=== PATIENT | female | born 1940 | race Caucasian/White ===

== ENCOUNTER 2023-06-07 12:54 | Inpatient (IN) | payer MEDICARE, OTHER ==
--- NOTE | 2023-06-07 12:58 | ERPHSYRPT ---
- History of Present Illness Time Seen by Provider: 06/07/23 12:58 Source: patient, EMS, old records Exam Limitations: clinical condition Physician History: This is an 82-year-old overweight white female patient who has been falling frequently. Patient was brought into the emergency department by the paramedics. They have been out there at the patient's home a couple of the times earlier in the week but she refused to be transported to the emergency department. Today, she fell again prior to arrival and complains of a headache and neck pain and left shoulder and left upper arm pain as well as right hip pain and right lower back pain. Patient presents to the emergency department in sinus tachycardia. She denies chest pain. She denies shortness of breath. She has noticeable bruising left upper arm. Patient has a history of hypertension, diabetes and hyperlipidemia. Occurred: just prior to arrival Reason for Fall: unknown Injuries/Pain Location: head, neck, upper extremity (Left clavicle, left shoulder and left upper arm), pelvis (Right hip), lower (Lower back in the mid 9) Loss of Consciousness: no loss of consciousness Quality: aching Severity of Pain-Max: mild (To moderate) Severity of Pain-Current: mild (To moderate) Modifying Factors: Improves With: movement Associated Symptoms (Fall): headache, neck pain, other (Right hip and lower spine. Left shoulder and left upper arm) Allergies/Adverse Reactions: Sulfa (Sulfonamide Antibiotics) Allergy (Unknown, Verified 06/07/23 13:06) Home Medications: Amlodipine Besylate 5 mg [Norvasc 5 mg] 5 mg PO DAILY 06/07/23 [History] Glipizide 10 mg [Glucotrol 10 MG] 10 mg PO DAILY 06/07/23 [History] Simvastatin 20Mg [Zocor 20Mg] 20 mg PO DAILY 06/07/23 [History] lisinopriL [Zestril] 30 mg PO DAILY 06/07/23 [History] Travel Risk - International Travel Have you traveled outside of the country in past 3 weeks: No - Coronavirus Screening Are you exhibiting any of the following symptoms?: No Close contact with a COVID-19 positive Pt in past 14-21 Days: No - Review of Systems Constitutional: No Symptoms Eyes: No Symptoms Ears, Nose, & Throat: No Symptoms Respiratory: No Symptoms Cardiac: No Symptoms Abdominal/Gastrointestinal: No Symptoms Genitourinary Symptoms: No Symptoms Musculoskeletal: Back Pain (Lower midline), Neck Pain, Fall, Injury (Left cl avicle, left shoulder, left upper arm, right hip and lower back in the midline) Skin: No Symptoms Neurological: Headache (Mild) Psychological: No Symptoms Endocrine: No Symptoms Hematologic/Lymphatic: No Symptoms Immunological/Allergic: No Symptoms All Other Systems: Reviewed and Negative - Past Medical History Pertinent Past Medical History: Yes - Past Surgical History Past Surgical History: Yes - Nursing Vital Signs Nursing Vital Signs: Initial Vital Signs Temperature 97.9 F 06/07/23 12:55 Pulse Rate 129 H 06/07/23 12:55 Respiratory Rate 18 06/07/23 12:55 Blood Pressure 96/74 06/07/23 12:55 O2 Sat by Pulse Oximetry 95 06/07/23 12:55 Pain Scale Pain Intensity 6 - Victorino Coma Score Best Eye Response (Victorino): (4) open spontaneously Best Verbal Response (Victorino): (5) oriented Best Motor Response (Victorino): (6) obeys commands Victorino Total: 15 - Physical Exam General Appearance: no apparent distress, alert, anxiety, obese Head Injury: no evidence of injury Eye Exam: PERRL/EOMI, eyes nml inspection ENT Exam: airway nml, nml ext.inspection, No evidence of ENT injury, No dental injury Neck Exam: trachea midline, normal alignment, normal inspection, c-collar in place Respiratory/Chest Exam: normal breath sounds, No chest tenderness, No respiratory distress, No ecchymosis, No crepitus Cardiovascular Exam: tachycardia Gastrointestinal Exam: soft, normal bowel sounds, No tenderness Rectal Exam: not done Back Exam: normal inspection, vertebral tenderness (Lower midline lumbar region), decreased range of motion, muscle spasm Extremity Exam: limited range of motion (Left upper extremity), hip tenderness (Right), pain with movement (Left upper extremity), tenderness (Left upper extremity above the elbow, right hip, lower back), No deformities Neurologic Exam: alert, oriented x 3, cooperative, 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 tested, normal mood/affect Skin Exam: ecchymosis (Left upper extremity in between the left shoulder joint and the left elbow joint) SpO2 Interpretation: borderline oxygenation O2 Delivery: Room Air - Course Nursing assessment & vital signs reviewed: Yes EKG Interpreted by Me: RATE, Sinus Tach, NORMAL AXIS, prolonged QT interval, NORMAL QRS, Other (No acute ischemic changes on today's twelve-lead EKG) Ordered Tests: Active Orders 24 hr Category Date Time Status Oyster Bed Worker STAT Care 06/07/23 13:22 Active Catheter-Jeffrey Pop STAT Care 06/07/23 13:44 Active EKG-ER Only STAT Care 06/07/23 13:21 Active IV Insertion STAT Care 06/07/23 13:21 Active Pulse Oximetry (ED) STAT Care 06/07/23 13:21 Active CERVICAL SPINE WO CONTRAST [CT] Stat Exams 06/07/23 13:20 Completed CLAVICLE Stat Exams 06/07/23 13:20 Completed HEAD WITHOUT CONTRAST [CT] Stat Exams 06/07/23 13:20 Completed HIP UNI (2V) INCL PEL IF DONE Stat Exams 06/07/23 13:21 Completed HUMERUS Stat Exams 06/07/23 13:21 Completed LUMBAR SPINE W/O [CT] Routine Exams 06/07/23 13:41 Completed SHOULDER Stat Exams 06/07/23 13:20 Completed CBC W DIFF Stat Lab 06/07/23 13:21 Completed CMP Stat Lab 06/07/23 13:21 Completed CULTURE,URINE Stat Lab 06/07/23 15:35 Received MAGNESIUM Stat Lab 06/07/23 13:21 Completed NT PRO BNPII Stat Lab 06/07/23 13:21 Completed PROTIME WITH INR Stat Lab 06/07/23 13:21 Completed TROPONIN Q4H Lab 06/07/23 13:30 Completed TROPONIN Q4H Lab 06/07/23 17:30 Ordered TROPONIN Q4H Lab 06/07/23 21:30 Ordered UA W/RFX UR CULTURE Stat Lab 06/07/23 15:35 Completed Medication Summary Generic Name Dose Route Start Last Admin Trade Name Freq PRN Reason Stop Dose Admin Ceftriaxone Sodium/Dextrose 1 g in 50 mls @ 100 mls/hr 06/07/23 17:05 06/07/23 17:08 Rocephin 1 Gm-D5w 50 Ml Bag IV 06/07/23 17:34 100 mls/hr STAT STA 100 mls/hr Administration Discontinued Medications Generic Name Dose Route Start Last Admin Trade Name Freq PRN Reason Stop Dose Admin Sodium Chloride 500 mls @ 500 mls/hr 06/07/23 13:44 06/07/23 15:15 Sodium Chloride 0.9% 500 Ml IV 06/07/23 14:43 Infused .Q1H ONE Infusion Sodium Chloride Confirm 06/07/23 14:13 Sodium Chloride 0.9% 500 Ml Administered 06/07/23 14:14 Dose 500 mls @ ud IV .STK-MED ONE Morphine Sulfate 4 mg 06/07/23 16:11 06/07/23 16:14 Morphine Sulfate 4 Mg/Ml Injection IV 06/07/23 16:12 4 mg STAT ONE Administration Morphine Sulfate Confirm 06/07/23 16:13 Morphine Sulfate 4 Mg/Ml Injection Administered 06/07/23 16:14 Dose 4 mg .ROUTE .STK-MED ONE Ondansetron HCl 4 mg 06/07/23 16:11 06/07/23 16:13 Ondansetron Hcl 4 Mg/2 Ml Vial IV 06/07/23 16:12 4 mg STAT ONE Administration Ondansetron HCl Confirm 06/07/23 16:12 Ondansetron Hcl 4 Mg/2 Ml Vial Administered 06/07/23 16:13 Dose 4 mg .ROUTE .STK-MED ONE Lab/Rad Data: Laboratory Result Diagrams 06/07/23 13:21 06/07/23 13:21 Laboratory Results 06/07/23 06/07/23 06/07/23 Range/Units 15:35 13:30 13:21 WBC (4.0-10.5) x10^3/uL RBC (4.1-5.4) x10^6/uL Hgb (12.0-16.0) g/dL Hct (35-47) % MCV (78-100) fL MCH (26-32) pg MCHC (32-36) g/dL RDW (11.5-14.0) % Plt Count (150-450) x10^3/uL MPV (7.5-11.0) fL Gran % (36.0-66.0) % Immature Gran % (Auto) (0.00-0.4) % Nucleat RBC Rel Count (0.00-0.1) % Eos # (Auto) (0-0.5) x10^3/uL Immature Gran # (Auto) (0.00-0.03) x10^3u/L Absolute Lymphs (auto) (1.0-4.6) x10^3/uL Absolute Monos (auto) (0.0-1.3) x10^3/uL Absolute Nucleated RBC (0.00-0.01) x10^3u/L Lymphocytes % (24.0-44.0) % Monocytes % (0.0-12.0) % Eosinophils % (0.00-5.0) % Basophils % (0.0-0.4) % Absolute Granulocytes (1.4-6.9) x10^3/uL Basophils # (0-0.4) x10^3/uL PT 10.6 (9.4-12.5) SECONDS INR 0.97 (0.8-3.0) Sodium (137-145) mmol/L Potassium (3.5-5.1) mmol/L Chloride (98-107) mmol/L Carbon Dioxide (22-30) mmol/L Anion Gap (5-15) MEQ/L BUN (7-17) mg/dL Creatinine (0.52-1.04) mg/dL Estimated GFR ML/MIN Glucose (74-106) mg/dL Calcium (8.4-10.2) mg/dL Magnesium (1.6-2.3) mg/dL Total Bilirubin (0.2-1.3) mg/dL AST (14-36) U/L ALT (0-35) U/L Alkaline Phosphatase (38-126) U/L Troponin I 0.034 (0.000-0.034) ng/mL NT-Pro-B Natriuret Pep (<300) pg/mL Serum Total Protein (6.3-8.2) g/dL Albumin (3.5-5.0) g/dL Urine Color Dark Yellow A (Yellow) Urine Appearance Cloudy A (Clear) Urine pH 5.0 (4.6-8.0) Ur Specific [place] 1.020 (1.005-1.030) Urine Protein 30 (Negative) Urine Glucose (UA) Negative (Negative) mg/dL Urine Ketones Trace A (Negative) Urine Blood Small A (Negative) Urine Nitrite Negative (Negative) Urine Bilirubin Negative (Negative) Urine Urobilinogen 1.0 A (0.2) mg/dL Ur Leukocyte Esterase Negative (Negative) U Hyaline Cast (Auto) 6-10 A (0-2) /LPF Urine Microscopic RBC 0-2 (0-5) /HPF Urine Microscopic WBC 21-50 A (0-5) /HPF Ur Epithelial Cells Many A (None Seen) /HPF Urine Bacteria None Seen (None Seen) /HPF WBC Casts 2-5 (NEGATIVE) /LPF Urine Culture Reflexed YES (NO) 06/07/23 06/07/23 Range/Units 13:21 13:21 WBC 12.6 H (4.0-10.5) x10^3/uL RBC 4.54 (4.1-5.4) x10^6/uL Hgb 13.2 (12.0-16.0) g/dL Hct 42.2 (35-47) % MCV 93.0 (78-100) fL MCH 29.1 (26-32) pg MCHC 31.3 L (32-36) g/dL RDW 13.3 (11.5-14.0) % Plt Count 227 (150-450) x10^3/uL MPV 11.9 H (7.5-11.0) fL Gran % 86.6 H (36.0-66.0) % Immature Gran % (Auto) 0.6 H (0.00-0.4) % Nucleat RBC Rel Count 0.0 (0.00-0.1) % Eos # (Auto) 0 (0-0.5) x10^3/uL Immature Gran # (Auto) 0.07 H (0.00-0.03) x10^3u/L Absolute Lymphs (auto) 0.69 L (1.0-4.6) x10^3/uL Absolute Monos (auto) 0.89 (0.0-1.3) x10^3/uL Absolute Nucleated RBC 0.00 (0.00-0.01) x10^3u/L Lymphocytes % 5.5 L (24.0-44.0) % Monocytes % 7.1 (0.0-12.0) % Eosinophils % 0.0 (0.00-5.0) % Basophils % 0.2 (0.0-0.4) % Absolute Granulocytes 10.88 H (1.4-6.9) x10^3/uL Basophils # 0.03 (0-0.4) x10^3/uL PT (9.4-12.5) SECONDS INR (0.8-3.0) Sodium 141 (137-145) mmol/L Potassium 4.5 (3.5-5.1) mmol/L Chloride 105 (98-107) mmol/L Carbon Dioxide 16 L* (22-30) mmol/L Anion Gap 24.4 H (5-15) MEQ/L BUN 61 H (7-17) mg/dL Creatinine 2.79 H (0.52-1.04) mg/dL Estimated GFR 17.3 ML/MIN Glucose 202 H (74-106) mg/dL Calcium 8.9 (8.4-10.2) mg/dL Magnesium 2.0 (1.6-2.3) mg/dL Total Bilirubin 1.20 (0.2-1.3) mg/dL AST 45 H (14-36) U/L ALT 34 (0-35) U/L Alkaline Phosphatase 104 (38-126) U/L Troponin I (0.000-0.034) ng/mL NT-Pro-B Natriuret Pep 512 (<300) pg/mL Serum Total Protein 7.9 (6.3-8.2) g/dL Albumin 4.2 (3.5-5.0) g/dL Urine Color (Yellow) Urine Appearance (Clear) Urine pH (4.6-8.0) Ur Specific [place] (1.005-1.030) Urine Protein (Negative) Urine Glucose (UA) (Negative) mg/dL Urine Ketones (Negative) Urine Blood (Negative) Urine Nitrite (Negative) Urine Bilirubin (Negative) Urine Urobilinogen (0.2) mg/dL Ur Leukocyte Esterase (Negative) U Hyaline Cast (Auto) (0-2) /LPF Urine Microscopic RBC (0-5) /HPF Urine Microscopic WBC (0-5) /HPF Ur Epithelial Cells (None Seen) /HPF Urine Bacteria (None Seen) /HPF WBC Casts (NEGATIVE) /LPF Urine Culture Reflexed (NO) - Progress Progress: improved, pain not gone completely, re-examined Progress Note: 06/07/23 15:21 CT scan of the left shoulder shows modified angulated impacted humeral neck fracture. CT scan of the head shows a nonacute senile brain with bilateral basal ganglia remote lacunar infarcts. CT scan of the cervical spine fine shows degenerative changes without acute fracture or subluxation. Lumbar spine films shows no acute fracture or subluxation. There are degenerative changes noted. X-ray left humerus shows a moderate angulated impacted humeral neck fracture. X-ray of left clavicle shows moderate angulated impacted humeral head neck fracture. 06/07/23 17:10 This patient's medical issue is 1 of high complexity. The level of complexity and the work-up performed is based on review of the patient's past medical history, review of the patient's social condition, review of the patient's medication list, review the patient's drug allergy list, history of present illness and physical findings on examination. Work-up in this patient includes placement of intravenous line, infusion of intravenous fluids, placement of a Pop catheter, urinalysis, twelve-lead EKG, CBC, CMP, BNP, troponin level, CT scan of the head, CT scan of the cervical spine, CT scan of the left shoulder, x-ray of the left humerus, x-ray of the left clavicle, x-ray of the pelvis and right hip, x-ray of the lumbar spine. I reviewed the results of the above studies. I interpreted the plain x-ray films. Patient has a left humeral neck fracture. We placed the patient in a long-arm posterior splint and put her in a sling. Patient cannot be discharged to home. She has been falling frequently and is weak. Her urinalysis shows significant white cells in her urine and she has an associated elevated white count with a left shift. In addition she has acute on chronic renal failure and associated acidosis. She needs intravenous fluids, intravenous antibiotics and reassessment of her labs. We will also obtain orthopedic consultation for 06/10/2023. 06/07/23 17:14 I spoke with the telehospitalist Dr. Hernandez. I reviewed the above patient's history, history of present illness, physical findings, work-up results and he agrees with the above stated plan. Counseled pt/family regarding: lab results, diagnosis, rad results Medical Desision Making - Independent Historian Additional History obtained from: Child (Son) - Discussion of managment Care discussed with:: hospitalist (I spoke with , the telehospitalist) Reviewed:: Test results, Need for additional workup Agreed on:: Treatment plan, decision to admit Will see patient: in hospital - Diagnostic Testing Diagnostic test were ordered, analyzed, and reviewed by me: Yes Radiological Interpretation: Reviewed by me, Teleradiologist Report - Risk of complications The pt has a high risk of morbidity or mortality based on: Decision regarding hospitilization or escalation of hosp level of care - Departure Departure Disposition: In-patient Admission Clinical Impression: Left humeral fracture, Acute on chronic renal failure, Acidosis, unspecified, Leukocytosis, Weakness, Mild dehydration Condition: Fair Critical Care Time: No Referrals: BOGDAN REBOLLEDO [Primary Care Provider] - Follow up/PCP as directed
[2023-06-07 13:36] LABS: Absolute Neutrophil Ct (ANC) 10.88 x10^3/uL (1.4-6.9); BASOPHIL % 0.2 % (0.0-0.4); Basophil (Absolute #) 0.03 x10^3/uL (0-0.4); Eosinophil (Absolute #) 0 x10^3/uL (0-0.5); Hematocrit 42.2 % (35-47); Hemoglobin 13.2 g/dL (12.0-16.0); IMMATURE GRAN # 0.07 x10^3u/L (0.00-0.03); IMMATURE GRAN % 0.6 % (0.00-0.4); Lymphocyte (Absolute #) 0.69 x10^3/uL (1.0-4.6); Lymphocytes % 5.5 % (24.0-44.0); Mean Corpuscular Hemoglobin 29.1 pg (26-32); Mean Corpuscular Hgb Concent. 31.3 g/dL (32-36); Mean Platelet Volume 11.9 fL (7.5-11.0); Monocyte (Absolute #) 0.89 x10^3/uL (0.0-1.3); Monocytes % 7.1 % (0.0-12.0); Neutrophil % 86.6 % (36.0-66.0); Platelet Count 227 x10^3/uL (150-450); Red Blood Count 4.54 x10^6/uL (4.1-5.4); Red Cell Distribution Width 13.3 % (11.5-14.0); White Blood Count 12.6 x10^3/uL (4.0-10.5)
[2023-06-07] MEDS ORDERED: Sodium Chloride 0.9% 500 ML 500 ML IV ONE ×2 (13:44→14:13)
[2023-06-07 13:51] LABS: INR 0.97 (0.8-3.0); PROTIME 10.6 SECONDS (9.4-12.5)
[2023-06-07 14:00] LABS: ALBUMIN 4.2 g/dL (3.5-5.0); ANION GAP 24.4 MEQ/L (5-15); BILIRUBIN,TOTAL 1.2 mg/dL (0.2-1.3); Calcium 8.9 mg/dL (8.4-10.2); Creatinine 1 2.79 mg/dL (0.52-1.04); EST GLOMERULAR FILTRATION RATE 17.3 ML/MIN; Potassium 4.5 mmol/L (3.5-5.1); Total Protein 7.9 g/dL (6.3-8.2)
--- NOTE | 2023-06-07 14:25 | XRAY ---
Indication: Status post fall. Multiple contiguous axial images obtained through the head without contrast. Comparison: November 11, 2012 Age-appropriate global atrophy and minimal periventricular degenerative micro-ischemia bilateral. Basal ganglia demonstrates new tiny remote lacunar infarcts bilaterally. No acute intracranial gore-white matter differentiation preserved. Hemorrhage, abnormal extra-axial fluid collection, mass effect. Fourth ventricle is midline without hydrocephalus. Bony calvarium intact. Visualized paranasal sinuses and mastoid air cells are clear. 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
--- NOTE | 2023-06-07 14:29 | XRAY ---
Indication: Status post fall. Multiple contiguous axial images obtained through the cervical spine. Sagittal and coronal reformatted images obtained. [place] comparison: None Osseous structures demineralized consistent with patient's age. Axial images negative for acute fracture, suspicious bony lesions, or spinal canal stenosis. Mild/moderate C4-C7 degenerative endplate spurring, moderate atlantoaxial degenerative arthropathy, and moderate multilevel bilateral degenerative facet hypertrophy. Sagittal and coronal reformatted images demonstrates lordotic straightening, positional versus paraspinal spasm. 3 mm C4 and 4 mm C7 anterolisthesis. C4-T1 degenerative disc space narrowing. No acute compression fracture or jumped facet. Normal appearing craniocervical junction. Visualized noncontrasted soft tissues demonstrates mild bilateral carotid calcifications. Lung apices clear. Impression: 1. Cervical lordotic straightening, positional versus paraspinal spasm. 2. Negative acute fracture. 3. Chronic findings including osteopenia, multilevel degenerative spondylosis, grade 1 C4/C7 anterolisthesis, and carotid arteriosclerotic calcifications.
--- NOTE | 2023-06-07 14:33 | XRAY ---
Indication: Status post fall. Multiple contiguous axial images obtained through the lumbar spine. Sagittal and coronal reformatted images obtained. Comparison: None Osseous structures demineralized consistent with patient's age. Axial images demonstrate moderate/advanced T12-S1 degenerative disc disease with disc osteophyte complex and vacuum disc phenomena. Same levels also demonstrate mild/moderate bilateral degenerative facet hypertrophy. L4-L5 level demonstrates spinal canal stenosis due to combination of degenerative disc osteophyte complex and degenerative facet hypertrophy. Sagittal and coronal reformatted images demonstrates moderate levorotoscoliosis centered at L2-L3 and multilevel disc space narrowing. Also 5 mm L4 anterolisthesis on L5. No acute compression fracture. Visualized noncontrasted soft tissues demonstrates moderate scattered arteriosclerotic calcifications and incompletely visualized 4 cm chunky uterine calcified fibroid. Impression: 1. Negative acute fracture. 2. Chronic findings including osteopenia, multilevel degenerative spondylosis, L4 grade 1 anterolisthesis, levoscoliosis, arteriosclerotic disease, and uterine calcified fibroid.
--- NOTE | 2023-06-07 14:44 | XRAY ---
Indication: Pain following fall. Comparison: None 3 view left shoulder demonstrates moderately angulated impacted humeral neck fracture. Elsewhere osteopenia and mild AC degenerative arthropathy. No other bony, articular, or soft tissue abnormalities.
--- NOTE | 2023-06-07 14:44 | XRAY ---
Indication: Pain following fall. Comparison: None 2 view left clavicle demonstrates moderately angulated impacted humeral neck fracture. Elsewhere osteopenia, mild AC degenerative arthropathy, and moderate multilevel cervicothoracic degenerative spondylosis. No other bony, articular, or soft tissue abnormalities.
--- NOTE | 2023-06-07 14:44 | XRAY ---
Indication: Pain following fall. Comparison: None 2 view left humerus demonstrates moderately angulated impacted humeral neck fracture. Elsewhere osteopenia and mild AC degenerative arthropathy. No other bony, articular, or soft tissue abnormalities.
--- NOTE | 2023-06-07 14:46 | XRAY ---
Indication: Pain following fall. Comparison: None AP pelvis and 2 view left hip demonstrates osteopenia, degenerative changes lower lumbar spine reported separately, and large uterine calcified fibroid. No other bony, articular, or soft tissue abnormalities.
[2023-06-07 16:09] LABS: Appearance Cloudy (Clear); Bacteria None Seen /HPF (None Seen); Bilirubin Negative (Negative); Blood Small (Negative); Epithelial Cells Many /HPF (None Seen); Glucose, Urine Negative (Negative); Ketones Trace (Negative); Leukocyte Esterase Negative (Negative); Nitrite Negative (Negative); Protein,Urine Dip 30 (Negative); RBC 0-2 /HPF (0-5); WBC 21-50 /HPF (0-5)
[2023-06-07] MEDS ORDERED: MORPHINE SULFATE 4 MG INJ IV ONE (16:11)
[2023-06-07] MEDS ORDERED: Zofran 4 MG/2 ML VIAL IV ONE (16:11)
[2023-06-07] MEDS ORDERED: Zofran 4 MG/2 ML VIAL ONE (16:12)
[2023-06-07] MEDS ORDERED: MORPHINE SULFATE 4 MG INJ ONE (16:13)
[2023-06-07 16:37] LABS: ADD URINE CULTURE? YES (NO)
[2023-06-07] MEDS ORDERED: ROCEPHIN 1 Gm-D5w 50 ml Bag** 1 G/50 ML IVPB IV STA (17:05)
[2023-06-07] MEDS ORDERED: ROCEPHIN 1 Gm-D5w 50 ml Bag** 1 G/50 ML IVPB IV ONE (17:08)
[2023-06-07 17:47] LABS: VBG CARBOXYHEMOGLOBIN 3.9 % T HGB (0.0-6.9); VBG HCO3- 17.5 meq/L (22-28); VBG HEMOGLOBIN 13.7; VBG O2 SATURATION 72.5 (95-100); VBG pH 7.26 (7.32-7.42)
[2023-06-07 17:48] LABS: VBG POTASSIUM 6.1 (3.5-5.1)
[2023-06-07] MEDS: Sodium Chloride 0.9% 1000 ML 1,000 ML IV SCH ×2 (17:52→23:49)
[2023-06-07 18:19] LABS: ANION GAP 17.3 MEQ/L (5-15); Calcium 8.4 mg/dL (8.4-10.2); Creatinine 1 2.43 mg/dL (0.52-1.04); EST GLOMERULAR FILTRATION RATE 20.3 ML/MIN; Potassium 4.3 mmol/L (3.5-5.1); TROPONIN 0.029 ng/mL (0.000-0.034)
[2023-06-07] MEDS ORDERED: Zofran 4 MG/2 ML VIAL IV PRN (18:41)
[2023-06-07] MEDS ORDERED: TYLENOL 325 MG PO PRN (18:41)
[2023-06-07] MEDS ORDERED: MORPHINE SULFATE 4 MG INJ IV PRN (18:41)
[2023-06-07] MEDS ORDERED: MILK OF MAGNESIA 30 ML PO PRN (21:12)
[2023-06-07] MEDS ORDERED: Pepcid 20 MG PO PRN (21:12)
--- NOTE | 2023-06-07 21:23 | PCM.HP ---
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 She fell again last night and suffered a left humerus fracture. Labs were also significant for WBC of 12.6, platelets 227, VBG 7.26/39. BMP significant for CO2 of 18, anion gap of 17, creatinine of 2.4, glucose 154. UA with trace ketones, small blood, 21-50 WBCs and many epithelial cells. She had multiple imaging study including CT C-spine which was negative for acute fracture; x-ray of left clavicle that showed impacted humeral neck fracture; head CT that was negative for acute pathology; left shoulder x-ray that again showed humeral neck fracture; hip x-ray that was negative for acute abnormalities; lumbar CT that showed no acute fractures. In the ED she was given morphine 4 mg, Zofran 4 mg, Rocephin 1 g, NS 500 cc. Medications & Allergies Home Medications: Home Medication List Amlodipine Besylate 5 mg [Norvasc 5 mg] 5 mg PO DAILY 06/07/23 [History Confirmed 06/07/23] Aspirin EC 81 mg [Ecotrin 81 mg] 81 mg PO DAILY 06/07/23 [History Confirmed 06/07/23] Glipizide 10 mg [Glucotrol 10 MG] 10 mg PO DAILY 06/07/23 [History Confirmed 06/07/23] Simvastatin 20Mg [Zocor 20Mg] 20 mg PO DAILY 06/07/23 [History Confirmed 06/07/23] lisinopriL [Zestril] 30 mg PO DAILY 06/07/23 [History Confirmed 06/07/23] Allergies/Adverse Reactions: Allergies Allergy/AdvReac Type Severity Reaction Status Date / Time Sulfa (Sulfonamide Allergy Unknown Verified 06/07/23 13:06 Antibiotics) - Past Medical History Past Medical History: Yes Neurological History: Stroke ENT History: Cataracts Cardiac History: Arrhythmia, High Cholesterol, Hypertension Respiratory History: No Pertinent History Endocrine Medical History: Diabetes Type I Musculoskelatal History: Fractures GI Medical History: GERD History: No Pertinent History Pyscho-Social History: No Pertinent History Reproductive Disorders: No Pertinent History - Past Surgical History Past Surgical History: Yes Neuro Surgical History: No Pertinent History Cardiac History: No Pertinent History Respiratory Surgery: No Pertinent History GI Surgical History: Cholecystectomy Genitourinary Surgical Hx: No Pertinent History Musculskeletal Surgical Hx: No Pertinent History Female Surgical History: No Pertinent History - Social History Smoking Status: Never smoker Exposure to second hand smoke: No Alcohol: None Drug Use: none - Physical Exam Vital Signs: Vital Signs - 24 hr Temp Pulse Resp BP BP Pulse Ox 06/07/23 19:01 97.8 F 80 17 136/64 96 06/07/23 18:00 106/57 06/07/23 17:30 100 H 31 H 118/54 06/07/23 17:00 104 H 22 108/57 06/07/23 16:30 103 H 33 H 108/55 06/07/23 16:00 80 18 122/63 06/07/23 15:00 84 29 H 118/71 06/07/23 14:34 104 H 22 147/73 06/07/23 13:33 94 L 06/07/23 13:32 99 H 21 93/51 93 L 06/07/23 13:30 118 H 22 92 L 06/07/23 12:58 118 H 22 96/74 92 L 06/07/23 12:55 97.9 F 129 H 18 96/74 95 Results - Labs Lab/Micro Results: Lab Results-Last 24 Hours 06/07/23 06/07/23 06/07/23 Range/Units 13:21 13:21 13:21 WBC 12.6 H (4.0-10.5) x10^3/uL RBC 4.54 (4.1-5.4) x10^6/uL Hgb 13.2 (12.0-16.0) g/dL Hct 42.2 (35-47) % MCV 93.0 (78-100) fL MCH 29.1 (26-32) pg MCHC 31.3 L (32-36) g/dL RDW 13.3 (11.5-14.0) % Plt Count 227 (150-450) x10^3/uL MPV 11.9 H (7.5-11.0) fL Gran % 86.6 H (36.0-66.0) % Immature Gran % (Auto) 0.6 H (0.00-0.4) % Nucleat RBC Rel Count 0.0 (0.00-0.1) % Eos # (Auto) 0 (0-0.5) x10^3/uL Immature Gran # (Auto) 0.07 H (0.00-0.03) x10^3u/L Absolute Lymphs (auto) 0.69 L (1.0-4.6) x10^3/uL Absolute Monos (auto) 0.89 (0.0-1.3) x10^3/uL Absolute Nucleated RBC 0.00 (0.00-0.01) x10^3u/L Lymphocytes % 5.5 L (24.0-44.0) % Monocytes % 7.1 (0.0-12.0) % Eosinophils % 0.0 (0.00-5.0) % Basophils % 0.2 (0.0-0.4) % Absolute Granulocytes 10.88 H (1.4-6.9) x10^3/uL Basophils # 0.03 (0-0.4) x10^3/uL PT 10.6 (9.4-12.5) SECONDS INR 0.97 (0.8-3.0) pO2/FiO2 Ratio % VBG pH (7.32-7.42) VBG pCO2 at Pat Temp (42-55) mm/Hg VBG pO2 at Pat Temp (25-40) mm/Hg VBG HCO3 (22-28) meq/L VBG O2 Sat (Eunice) (95-100) VBG Base Excess (-2.0-2.0) VBG Hemoglobin VBG Carboxyhemoglobin (0.0-6.9) % T HGB POC Potassium (3.5-5.1) Sodium 141 (137-145) mmol/L Potassium 4.5 (3.5-5.1) mmol/L Chloride 105 (98-107) mmol/L Carbon Dioxide 16 L* (22-30) mmol/L Anion Gap 24.4 H (5-15) MEQ/L BUN 61 H (7-17) mg/dL Creatinine 2.79 H (0.52-1.04) mg/dL Estimated GFR 17.3 ML/MIN Glucose 202 H (74-106) mg/dL POC Glucometer (74 to 106) mg/dL Lactic Acid (0.4-2.0) Calcium 8.9 (8.4-10.2) mg/dL Magnesium 2.0 (1.6-2.3) mg/dL Total Bilirubin 1.20 (0.2-1.3) mg/dL AST 45 H (14-36) U/L ALT 34 (0-35) U/L Alkaline Phosphatase 104 (38-126) U/L Troponin I (0.000-0.034) ng/mL NT-Pro-B Natriuret Pep 512 (<300) pg/mL Serum Total Protein 7.9 (6.3-8.2) g/dL Albumin 4.2 (3.5-5.0) g/dL Urine Color (Yellow) Urine Appearance (Clear) Urine pH (4.6-8.0) Ur Specific [place] (1.005-1.030) Urine Protein (Negative) Urine Glucose (UA) (Negative) mg/dL Urine Ketones (Negative) Urine Blood (Negative) Urine Nitrite (Negative) Urine Bilirubin (Negative) Urine Urobilinogen (0.2) mg/dL Ur Leukocyte Esterase (Negative) U Hyaline Cast (Auto) (0-2) /LPF Urine Microscopic RBC (0-5) /HPF Urine Microscopic WBC (0-5) /HPF Ur Epithelial Cells (None Seen) /HPF Urine Bacteria (None Seen) /HPF WBC Casts (NEGATIVE) /LPF Urine Culture Reflexed (NO) 06/07/23 06/07/23 06/07/23 Range/Units 13:30 15:35 17:26 WBC (4.0-10.5) x10^3/uL RBC (4.1-5.4) x10^6/uL Hgb (12.0-16.0) g/dL Hct (35-47) % MCV (78-100) fL MCH (26-32) pg MCHC (32-36) g/dL RDW (11.5-14.0) % Plt Count (150-450) x10^3/uL MPV (7.5-11.0) fL Gran % (36.0-66.0) % Immature Gran % (Auto) (0.00-0.4) % Nucleat RBC Rel Count (0.00-0.1) % Eos # (Auto) (0-0.5) x10^3/uL Immature Gran # (Auto) (0.00-0.03) x10^3u/L Absolute Lymphs (auto) (1.0-4.6) x10^3/uL Absolute Monos (auto) (0.0-1.3) x10^3/uL Absolute Nucleated RBC (0.00-0.01) x10^3u/L Lymphocytes % (24.0-44.0) % Monocytes % (0.0-12.0) % Eosinophils % (0.00-5.0) % Basophils % (0.0-0.4) % Absolute Granulocytes (1.4-6.9) x10^3/uL Basophils # (0-0.4) x10^3/uL PT (9.4-12.5) SECONDS INR (0.8-3.0) pO2/FiO2 Ratio % VBG pH (7.32-7.42) VBG pCO2 at Pat Temp (42-55) mm/Hg VBG pO2 at Pat Temp (25-40) mm/Hg VBG HCO3 (22-28) meq/L VBG O2 Sat (Eunice) (95-100) VBG Base Excess (-2.0-2.0) VBG Hemoglobin VBG Carboxyhemoglobin (0.0-6.9) % T HGB POC Potassium (3.5-5.1) Sodium (137-145) mmol/L Potassium (3.5-5.1) mmol/L Chloride (98-107) mmol/L Carbon Dioxide (22-30) mmol/L Anion Gap (5-15) MEQ/L BUN (7-17) mg/dL Creatinine (0.52-1.04) mg/dL Estimated GFR ML/MIN Glucose (74-106) mg/dL POC Glucometer (74 to 106) mg/dL Lactic Acid 4.2 H (0.4-2.0) Calcium (8.4-10.2) mg/dL Magnesium (1.6-2.3) mg/dL Total Bilirubin (0.2-1.3) mg/dL AST (14-36) U/L ALT (0-35) U/L Alkaline Phosphatase (38-126) U/L Troponin I 0.034 (0.000-0.034) ng/mL NT-Pro-B Natriuret Pep (<300) pg/mL Serum Total Protein (6.3-8.2) g/dL Albumin (3.5-5.0) g/dL Urine Color Dark Yellow A (Yellow) Urine Appearance Cloudy A (Clear) Urine pH 5.0 (4.6-8.0) Ur Specific [place] 1.020 (1.005-1.030) Urine Protein 30 (Negative) Urine Glucose (UA) Negative (Negative) mg/dL Urine Ketones Trace A (Negative) Urine Blood Small A (Negative) Urine Nitrite Negative (Negative) Urine Bilirubin Negative (Negative) Urine Urobilinogen 1.0 A (0.2) mg/dL Ur Leukocyte Esterase Negative (Negative) U Hyaline Cast (Auto) 6-10 A (0-2) /LPF Urine Microscopic RBC 0-2 (0-5) /HPF Urine Microscopic WBC 21-50 A (0-5) /HPF Ur Epithelial Cells Many A (None Seen) /HPF Urine Bacteria None Seen (None Seen) /HPF WBC Casts 2-5 (NEGATIVE) /LPF Urine Culture Reflexed YES (NO) 06/07/23 06/07/23 06/07/23 Range/Units 17:40 17:47 20:39 WBC (4.0-10.5) x10^3/uL RBC (4.1-5.4) x10^6/uL Hgb (12.0-16.0) g/dL Hct (35-47) % MCV (78-100) fL MCH (26-32) pg MCHC (32-36) g/dL RDW (11.5-14.0) % Plt Count (150-450) x10^3/uL MPV (7.5-11.0) fL Gran % (36.0-66.0) % Immature Gran % (Auto) (0.00-0.4) % Nucleat RBC Rel Count (0.00-0.1) % Eos # (Auto) (0-0.5) x10^3/uL Immature Gran # (Auto) (0.00-0.03) x10^3u/L Absolute Lymphs (auto) (1.0-4.6) x10^3/uL Absolute Monos (auto) (0.0-1.3) x10^3/uL Absolute Nucleated RBC (0.00-0.01) x10^3u/L Lymphocytes % (24.0-44.0) % Monocytes % (0.0-12.0) % Eosinophils % (0.00-5.0) % Basophils % (0.0-0.4) % Absolute Granulocytes (1.4-6.9) x10^3/uL Basophils # (0-0.4) x10^3/uL PT (9.4-12.5) SECONDS INR (0.8-3.0) pO2/FiO2 Ratio 21.0 % VBG pH 7.26 L (7.32-7.42) VBG pCO2 at Pat Temp 39 L (42-55) mm/Hg VBG pO2 at Pat Temp 44 H (25-40) mm/Hg VBG HCO3 17.5 L (22-28) meq/L VBG O2 Sat (Eunice) 72.5 L (95-100) VBG Base Excess -9.0 L (-2.0-2.0) VBG Hemoglobin 13.7 VBG Carboxyhemoglobin 3.9 (0.0-6.9) % T HGB POC Potassium 6.1 H* (3.5-5.1) Sodium 140 (137-145) mmol/L Potassium 4.3 (3.5-5.1) mmol/L Chloride 109 H (98-107) mmol/L Carbon Dioxide 18 L (22-30) mmol/L Anion Gap 17.3 H (5-15) MEQ/L BUN 68 H (7-17) mg/dL Creatinine 2.43 H (0.52-1.04) mg/dL Estimated GFR 20.3 ML/MIN Glucose 154 H (74-106) mg/dL POC Glucometer 132 H (74 to 106) mg/dL Lactic Acid (0.4-2.0) Calcium 8.4 (8.4-10.2) mg/dL Magnesium (1.6-2.3) mg/dL Total Bilirubin (0.2-1.3) mg/dL AST (14-36) U/L ALT (0-35) U/L Alkaline Phosphatase (38-126) U/L Troponin I 0.029 (0.000-0.034) ng/mL NT-Pro-B Natriuret Pep (<300) pg/mL Serum Total Protein (6.3-8.2) g/dL Albumin (3.5-5.0) g/dL Urine Color (Yellow) Urine Appearance (Clear) Urine pH (4.6-8.0) Ur Specific [place] (1.005-1.030) Urine Protein (Negative) Urine Glucose (UA) (Negative) mg/dL Urine Ketones (Negative) Urine Blood (Negative) Urine Nitrite (Negative) Urine Bilirubin (Negative) Urine Urobilinogen (0.2) mg/dL Ur Leukocyte Esterase (Negative) U Hyaline Cast (Auto) (0-2) /LPF Urine Microscopic RBC (0-5) /HPF Urine Microscopic WBC (0-5) /HPF Ur Epithelial Cells (None Seen) /HPF Urine Bacteria (None Seen) /HPF WBC Casts (NEGATIVE) /LPF Urine Culture Reflexed (NO) - Radiology Impressions Radiology Exams & Impressions: Radiology Procedures Category Date Time Status CERVICAL SPINE WO CONTRAST [CT] Stat Exams 06/07/23 13:20 Completed CLAVICLE Stat Exams 06/07/23 13:20 Completed HEAD WITHOUT CONTRAST [CT] Stat Exams 06/07/23 13:20 Completed HIP UNI (2V) INCL PEL IF DONE Stat Exams 06/07/23 13:21 Completed HUMERUS Stat Exams 06/07/23 13:21 Completed LUMBAR SPINE W/O [CT] Routine Exams 06/07/23 13:41 Completed SHOULDER Stat Exams 06/07/23 13:20 Completed Assessment/Plan (1) Acidosis, unspecified Current Visit: Yes Status: Acute Code(s): E87.20 - ACIDOSIS, UNSPECIFIED (2) Acute on chronic renal failure Current Visit: Yes Status: Acute Code(s): N17.9 - ACUTE KIDNEY FAILURE, UNSPECIFIED; N18.9 - CHRONIC KIDNEY DISEASE, UNSPECIFIED (3) Left humeral fracture Current Visit: Yes Status: Acute Code(s): S42.302A - UNSP FRACTURE OF SHAFT OF HUMERUS, LEFT ARM, INIT (4) Mild dehydration Current Visit: Yes Status: Acute Code(s): E86.0 - DEHYDRATION (5) Weakness Current Visit: Yes Status: Acute Assessment & Plan: PHYSICAL EXAM Gen: Alert and oriented, NAD. Son at bedside Eyes: PERRL ENT: MMM CV: S1S2 Pulm: On RA, no accessory muscle use Abd: Soft/nt/nd Extrem: LUE in splint. LLE 1-2+ edema Skin: Large bruise LUE Neuro: No focal deficits noted Psych: Calm and cooperative ASSESSMENT #Left Humeral neck fracture #Failure to thrive #Multiple falls #LLE edema #Presumed acute renal failure (unknown baseline) #Anion gap metabolic acidosis likely multifactorial from renal failure and starvation ketosis #History of hypertension #History of CVA PLAN -Status post splint placement; Ortho consulted -IV fluids -P.o. diet -Doppler LLE -Follow renal panel and urine output -Hold TABITHA inhibitor until renal function improves -Physical therapy likely will need placement PO diet Prophylaxis: Lovenox Entire encounter performed via telemedicine Code(s): R53.1 - WEAKNESS Telemedicine Encounter - Telemedicine Encounter Telemedicine Encounter: The entirety of this encounter was performed via Telemedicine"
[2023-06-07 21:59] LABS: ALBUMIN 3.5 g/dL (3.5-5.0); ANION GAP 16.7 MEQ/L (5-15); Calcium 8.1 mg/dL (8.4-10.2); Creatinine 1 2.26 mg/dL (0.52-1.04); EST GLOMERULAR FILTRATION RATE 22.1 ML/MIN; PHOSPHOROUS 6.6 mg/dL (2.5-4.5); Potassium 4.3 mmol/L (3.5-5.1)
[2023-06-07] MEDS ORDERED: Sodium Chloride 0.9% 1000 ML 1,000 ML ONE (22:49)
[2023-06-08] MEDS: Sodium Chloride 0.9% 1000 ML 1,000 ML IV SCH ×2 (01:01→15:55)
[2023-06-08 06:20] LABS: Absolute Neutrophil Ct (ANC) 7.52 x10^3/uL (1.4-6.9); BASOPHIL % 0.3 % (0.0-0.4); Basophil (Absolute #) 0.03 x10^3/uL (0-0.4); Eosinophil % 0.1 % (0.00-5.0); Eosinophil (Absolute #) 0.01 x10^3/uL (0-0.5); Hematocrit 36.4 % (35-47); Hemoglobin 11.6 g/dL (12.0-16.0); IMMATURE GRAN # 0.04 x10^3u/L (0.00-0.03); IMMATURE GRAN % 0.4 % (0.00-0.4); Lymphocyte (Absolute #) 1.82 x10^3/uL (1.0-4.6); Lymphocytes % 17.1 % (24.0-44.0); Mean Cell Volume 93.1 fL (78-100); Mean Corpuscular Hemoglobin 29.7 pg (26-32); Mean Corpuscular Hgb Concent. 31.9 g/dL (32-36); Mean Platelet Volume 11.6 fL (7.5-11.0); Monocyte (Absolute #) 1.24 x10^3/uL (0.0-1.3); Monocytes % 11.6 % (0.0-12.0); Neutrophil % 70.5 % (36.0-66.0); Platelet Count 191 x10^3/uL (150-450); Red Blood Count 3.91 x10^6/uL (4.1-5.4); Red Cell Distribution Width 13.5 % (11.5-14.0); White Blood Count 10.7 x10^3/uL (4.0-10.5)
[2023-06-08] MEDS ORDERED: D50W 50 ml Abboject IV ONE ×2 (06:50→07:04)
[2023-06-08 06:52] LABS: ALBUMIN 2.9 g/dL (3.5-5.0); ANION GAP 12.1 MEQ/L (5-15); BILIRUBIN,TOTAL 0.4 mg/dL (0.2-1.3); Calcium 7.7 mg/dL (8.4-10.2); Creatinine 1 1.83 mg/dL (0.52-1.04); EST GLOMERULAR FILTRATION RATE 28.2 ML/MIN; Potassium 3.6 mmol/L (3.5-5.1); Total Protein 5.9 g/dL (6.3-8.2)
[2023-06-08] MEDS ORDERED: Pepcid 20 MG PO PRN (07:15)
[2023-06-08] MEDS: ENOXAPARIN SODIUM SQ SCH (09:19)
[2023-06-08] MEDS: ROCEPHIN 1 Gm-D5w 50 ml Bag** 1 G/50 ML IVPB IV SCH (09:20)
[2023-06-08] MEDS: ECOTRIN 81 MG PO SCH (09:20)
[2023-06-08] MEDS ORDERED: ENOXAPARIN SODIUM SQ SCH (10:00)
[2023-06-08] MEDS: NORCO 5/325 MG PO PRN (15:56)
--- NOTE | 2023-06-08 21:25 | XRAY ---
Indication: Left leg swelling. 2-dimensional sonogram and color Doppler imaging of the major venous vessels of the left leg performed. Comparison: None No thrombus seen in the examined deep venous vessels of the left leg including greater saphenous vein. Veins demonstrate normal compressibility. Venous waveforms are normal with and without augmentation. Impression: Left leg negative for DVT. Comment: Preliminary report was given.
[2023-06-09] MEDS: NORCO 5/325 MG PO PRN ×4 (01:16→21:14)
[2023-06-09] MEDS: Sodium Chloride 0.9% 1000 ML 1,000 ML IV SCH ×5 (06:19→19:28)
[2023-06-09] MEDS: ECOTRIN 81 MG PO SCH ×2 (09:01→09:02)
[2023-06-09] MEDS: ENOXAPARIN SODIUM SQ SCH (09:02)
[2023-06-09] MEDS: ROCEPHIN 1 Gm-D5w 50 ml Bag** 1 G/50 ML IVPB IV SCH (09:02)
[2023-06-09] MEDS: APRESOLINE 20 MG/ML INJ IV PRN (21:14)
[2023-06-09] MEDS: HUMALOG SQ PRN (21:15)
[2023-06-10] MEDS: NORCO 5/325 MG PO PRN ×3 (04:01→14:14)
[2023-06-10] MEDS: APRESOLINE 20 MG/ML INJ IV PRN ×2 (04:30→17:08)
--- NOTE | 2023-06-10 07:33 | PCM.NOTE ---
Date and Time: 06/10/23730 Subjective Assessment: Refusing pain meds today, but 06/10 pain: Objective Exam General Appearance: no apparent distress Neurologic Exam: alert, oriented x 3, cooperative Wound Assessment: Skin/Wound Assessment Wound/Incision Assessment Start: 06/08/23 02:01 Text: Status: Active Freq: Q12H Protocol: Document 06/10/23 03:00 LB (Rec: 06/10/23 04:00 LB [id number]) Wound/Incision Assessment Right Buttock Wound Assessment Admission Wound Type Pressure Ulcer Wound Stage Stage II Dressing Status Dry & Intact Drainage Amount None Drainage Odor None/Absent General Appearance Clean/Dry Length (cm) (cm) 1.2 Width (cm) (cm) 1 Depth (cm) (cm) 0.2 Wound Bed Greatest Portion Red (Granulation) Wound Bed Lesser Portion Red (Granulation) Surrounding Tissue [place] Topical Solution/Irrigant Saline Irrigant Comment 4 inch border foam Wound Photo Photo Taken Yes Date: 06/08/23 Time: 03:45 Distance from Wound: 12 inches Neck Exam: normal inspection Respiratory Exam: normal breath sounds Cardiovascular Exam: regular rate/rhythm, normal heart sounds Gastrointestinal/Abdomen Exam: soft OBJECTIVE DATA Vital Signs: Vital Signs - 24 hr Temp Pulse Resp BP BP Pulse Ox 06/10/23 07:19 98 F 79 18 135/63 94 L 06/10/23 05:40 137/63 06/10/23 04:20 99.6 F 75 17 182/77 95 06/10/23 00:00 97.7 F 70 16 139/65 95 06/09/23 21:00 169/70 06/09/23 20:00 98.2 F 75 16 171/73 95 06/09/23 16:00 97.9 F 73 16 186/81 95 06/09/23 11:54 97.8 F 68 16 155/68 95 Pain Assessment - Last Documented Pain Intensity 7 Pain Scale Used 0-10 Pain Scale Intake and Output: Intake & Output 06/07/23 06/08/23 06/09/23 06/10/23 11:59 11:59 11:59 11:59 Intake Total 2735 7881 2697 Output Total 1000 2200 1750 Balance 1735 1131 947 Weight 83.915 kg Lab Results: Lab Results-Last 24 Hours 06/09/23 06/09/23 06/09/23 Range/Units 11:17 16:16 21:05 POC Glucometer 144 H 144 H 205 H (74 to 106) mg/dL 06/10/23 Range/Units 07:01 POC Glucometer 95 (74 to 106) mg/dL Radiology Exams: Radiology Procedures Category Date Time Status VENOUS UNILAT/LIMITED EXTREMIT [US] Stat Exams 06/08/23 08:00 Completed Assessment/Plan (1) Acidosis, unspecified Current Visit: Yes Status: Acute Code(s): E87.20 - ACIDOSIS, UNSPECIFIED (2) Acute on chronic renal failure Current Visit: Yes Status: Acute Code(s): N17.9 - ACUTE KIDNEY FAILURE, UNSPECIFIED; N18.9 - CHRONIC KIDNEY DISEASE, UNSPECIFIED (3) Left humeral fracture Current Visit: Yes Status: Acute Code(s): S42.302A - UNSP FRACTURE OF SHAFT OF HUMERUS, LEFT ARM, INIT (4) Leukocytosis Current Visit: Yes Status: Acute Code(s): D72.829 - ELEVATED WHITE BLOOD CELL COUNT, UNSPECIFIED (5) Mild dehydration Current Visit: Yes Status: Acute Code(s): E86.0 - DEHYDRATION (6) Weakness Current Visit: Yes Status: Acute Assessment & Plan: ASSESSMENT #Left Humeral neck fracture #Failure to thrive #Multiple falls #LLE edema #Presumed acute renal failure (unknown baseline) #Anion gap metabolic acidosis likely multifactorial from renal failure and starvation ketosis #History of hypertension #History of CVA PLAN -Status post splint placement; Ortho consulted -IV fluids -P.o. diet -Doppler LLE -Follow renal panel and urine output -Hold TABITHA inhibitor until renal function improves -Physical therapy likely will need placement -Patient agreeable to trying norco 5/325 for analgesia PO diet Prophylaxis: Lovenox Code(s): R53.1 - WEAKNESS Telemedicine Encounter - Telemedicine Encounter Telemedicine Encounter: The entirety of this encounter was performed via Telemedicine"
--- NOTE | 2023-06-10 07:37 | PCM.NOTE ---
Date and Time: 06/10/23 0735 Subjective Assessment: Stable; no changes; pain better controlled; 03/11 Objective Exam General Appearance: no apparent distress Neurologic Exam: alert, oriented x 3, cooperative Wound Assessment: Skin/Wound Assessment Wound/Incision Assessment Start: 06/08/23 02:01 Text: Status: Active Freq: Q12H Protocol: Document 06/10/23 03:00 LB (Rec: 06/10/23 04:00 LB [id number]) Wound/Incision Assessment Right Buttock Wound Assessment Admission Wound Type Pressure Ulcer Wound Stage Stage II Dressing Status Dry & Intact Drainage Amount None Drainage Odor None/Absent General Appearance Clean/Dry Length (cm) (cm) 1.2 Width (cm) (cm) 1 Depth (cm) (cm) 0.2 Wound Bed Greatest Portion Red (Granulation) Wound Bed Lesser Portion Red (Granulation) Surrounding Tissue [place] Topical Solution/Irrigant Saline Irrigant Comment 4 inch border foam Wound Photo Photo Taken Yes Date: 06/08/23 Time: 03:45 Distance from Wound: 12 inches Respiratory Exam: normal breath sounds, chest tenderness Cardiovascular Exam: regular rate/rhythm, normal heart sounds OBJECTIVE DATA Vital Signs: Vital Signs - 24 hr Temp Pulse Resp BP BP Pulse Ox 06/10/23 07:19 98 F 79 18 135/63 94 L 06/10/23 05:40 137/63 06/10/23 04:20 99.6 F 75 17 182/77 95 06/10/23 00:00 97.7 F 70 16 139/65 95 06/09/23 21:00 169/70 06/09/23 20:00 98.2 F 75 16 171/73 95 06/09/23 16:00 97.9 F 73 16 186/81 95 06/09/23 11:54 97.8 F 68 16 155/68 95 Pain Assessment - Last Documented Pain Intensity 7 Pain Scale Used 0-10 Pain Scale Intake and Output: Intake & Output 06/07/23 06/08/23 06/09/23 06/10/23 11:59 11:59 11:59 11:59 Intake Total 4895 3331 2697 Output Total 1000 2200 1750 Balance 1735 1131 947 Weight 83.915 kg Lab Results: Lab Results-Last 24 Hours 06/09/23 06/09/23 06/09/23 Range/Units 11:17 16:16 21:05 POC Glucometer 144 H 144 H 205 H (74 to 106) mg/dL 06/10/23 Range/Units 07:01 POC Glucometer 95 (74 to 106) mg/dL Radiology Exams: Radiology Procedures Category Date Time Status VENOUS UNILAT/LIMITED EXTREMIT [US] Stat Exams 06/08/23 08:00 Completed Assessment/Plan (1) Acidosis, unspecified Current Visit: Yes Status: Acute Code(s): E87.20 - ACIDOSIS, UNSPECIFIED (2) Acute on chronic renal failure Current Visit: Yes Status: Acute Code(s): N17.9 - ACUTE KIDNEY FAILURE, UNSPECIFIED; N18.9 - CHRONIC KIDNEY DISEASE, UNSPECIFIED (3) Left humeral fracture Current Visit: Yes Status: Acute Code(s): S42.302A - UNSP FRACTURE OF SHAFT OF HUMERUS, LEFT ARM, INIT (4) Leukocytosis Current Visit: Yes Status: Acute Code(s): D72.829 - ELEVATED WHITE BLOOD CELL COUNT, UNSPECIFIED (5) Mild dehydration Current Visit: Yes Status: Acute Code(s): E86.0 - DEHYDRATION (6) Weakness Current Visit: Yes Status: Acute Assessment & Plan: ASSESSMENT #Left Humeral neck fracture #Failure to thrive #Multiple falls #LLE edema #Presumed acute renal failure (unknown baseline) #Anion gap metabolic acidosis likely multifactorial from renal failure and starvation ketosis #History of hypertension #History of CVA PLAN -Status post splint placement; Ortho consulted -IV fluids -P.o. diet -Doppler LLE -Follow renal panel and urine output -Hold TABITHA inhibitor until renal function improves -Physical therapy likely will need placement -Continue norco for pain control PO diet Prophylaxis: Lovenox Code(s): R53.1 - WEAKNESS Telemedicine Encounter - Telemedicine Encounter Telemedicine Encounter: The entirety of this encounter was performed via Telemedicine"
--- NOTE | 2023-06-10 07:39 | PCM.NOTE ---
Date and Time: 06/10/23 0738 Subjective Assessment: Stable; better pain control; 03/11 Objective Exam Neurologic Exam: alert, oriented x 3, cooperative Skin Exam: normal color Wound Assessment: Skin/Wound Assessment Wound/Incision Assessment Start: 06/08/23 02:01 Text: Status: Active Freq: Q12H Protocol: Document 06/10/23 03:00 LB (Rec: 06/10/23 04:00 LB [id number]) Wound/Incision Assessment Right Buttock Wound Assessment Admission Wound Type Pressure Ulcer Wound Stage Stage II Dressing Status Dry & Intact Drainage Amount None Drainage Odor None/Absent General Appearance Clean/Dry Length (cm) (cm) 1.2 Width (cm) (cm) 1 Depth (cm) (cm) 0.2 Wound Bed Greatest Portion Red (Granulation) Wound Bed Lesser Portion Red (Granulation) Surrounding Tissue [place] Topical Solution/Irrigant Saline Irrigant Comment 4 inch border foam Wound Photo Photo Taken Yes Date: 06/08/23 Time: 03:45 Distance from Wound: 12 inches Respiratory Exam: normal breath sounds, chest tenderness Cardiovascular Exam: regular rate/rhythm, normal heart sounds OBJECTIVE DATA Vital Signs: Vital Signs - 24 hr Temp Pulse Resp BP BP Pulse Ox 06/10/23 07:19 98 F 79 18 135/63 94 L 06/10/23 05:40 137/63 06/10/23 04:20 99.6 F 75 17 182/77 95 06/10/23 00:00 97.7 F 70 16 139/65 95 06/09/23 21:00 169/70 06/09/23 20:00 98.2 F 75 16 171/73 95 06/09/23 16:00 97.9 F 73 16 186/81 95 06/09/23 11:54 97.8 F 68 16 155/68 95 Pain Assessment - Last Documented Pain Intensity 7 Pain Scale Used 0-10 Pain Scale Intake and Output: Intake & Output 06/07/23 06/08/23 06/09/23 06/10/23 11:59 11:59 11:59 11:59 Intake Total 2735 3331 2697 Output Total 1000 2200 1750 Balance 1735 1131 947 Weight 83.915 kg Lab Results: Lab Results-Last 24 Hours 06/09/23 06/09/23 06/09/23 Range/Units 11:17 16:16 21:05 POC Glucometer 144 H 144 H 205 H (74 to 106) mg/dL 06/10/23 Range/Units 07:01 POC Glucometer 95 (74 to 106) mg/dL Radiology Exams: Radiology Procedures Category Date Time Status VENOUS UNILAT/LIMITED EXTREMIT [US] Stat Exams 06/08/23 08:00 Completed Assessment/Plan (1) Acidosis, unspecified Current Visit: Yes Status: Acute Code(s): E87.20 - ACIDOSIS, UNSPECIFIED (2) Acute on chronic renal failure Current Visit: Yes Status: Acute Code(s): N17.9 - ACUTE KIDNEY FAILURE, UNSPECIFIED; N18.9 - CHRONIC KIDNEY DISEASE, UNSPECIFIED (3) Left humeral fracture Current Visit: Yes Status: Acute Code(s): S42.302A - UNSP FRACTURE OF SHAFT OF HUMERUS, LEFT ARM, INIT (4) Leukocytosis Current Visit: Yes Status: Acute Code(s): D72.829 - ELEVATED WHITE BLOOD CELL COUNT, UNSPECIFIED (5) Mild dehydration Current Visit: Yes Status: Acute Code(s): E86.0 - DEHYDRATION (6) Weakness Current Visit: Yes Status: Acute Assessment & Plan: PLAN -Status post splint placement; Ortho consulted -IV fluids -P.o. diet -Doppler LLE -Follow renal panel and urine output -Hold TABITHA inhibitor until renal function improves -Physical therapy likely will need placement -Continue norco for pain control PO diet Prophylaxis: Lovenox Code(s): R53.1 - WEAKNESS Telemedicine Encounter - Telemedicine Encounter Telemedicine Encounter: The entirety of this encounter was performed via Telemedicine"
[2023-06-10] MEDS: Sodium Chloride 0.9% 1000 ML 1,000 ML IV SCH ×2 (09:15→19:00)
[2023-06-10] MEDS: ENOXAPARIN SODIUM SQ SCH (09:16)
[2023-06-10] MEDS: ROCEPHIN 1 Gm-D5w 50 ml Bag** 1 G/50 ML IVPB IV SCH (09:16)
[2023-06-10] MEDS: ECOTRIN 81 MG PO SCH (09:16)
[2023-06-10 12:01] LABS: Absolute Neutrophil Ct (ANC) 5.72 x10^3/uL (1.4-6.9); BASOPHIL % 0.4 % (0.0-0.4); Basophil (Absolute #) 0.03 x10^3/uL (0-0.4); Eosinophil (Absolute #) 0.16 x10^3/uL (0-0.5); Hematocrit 34.4 % (35-47); Hemoglobin 10.8 g/dL (12.0-16.0); IMMATURE GRAN # 0.06 x10^3u/L (0.00-0.03); IMMATURE GRAN % 0.7 % (0.00-0.4); Lymphocyte (Absolute #) 1.31 x10^3/uL (1.0-4.6); Lymphocytes % 16.3 % (24.0-44.0); Mean Corpuscular Hemoglobin 29.2 pg (26-32); Mean Corpuscular Hgb Concent. 31.4 g/dL (32-36); Mean Platelet Volume 11.6 fL (7.5-11.0); Monocyte (Absolute #) 0.77 x10^3/uL (0.0-1.3); Monocytes % 9.6 % (0.0-12.0); Platelet Count 172 x10^3/uL (150-450); Red Cell Distribution Width 13.2 % (11.5-14.0); White Blood Count 8.1 x10^3/uL (4.0-10.5)
[2023-06-10 12:07] LABS: ALBUMIN 2.8 g/dL (3.5-5.0); ANION GAP 10.6 MEQ/L (5-15); BILIRUBIN,TOTAL 0.4 mg/dL (0.2-1.3); Calcium 7.8 mg/dL (8.4-10.2); Creatinine 1 1.07 mg/dL (0.52-1.04); EST GLOMERULAR FILTRATION RATE 52.3 ML/MIN; Potassium 4.3 mmol/L (3.5-5.1); Total Protein 5.9 g/dL (6.3-8.2)
--- NOTE | 2023-06-10 12:19 | XRAY ---
CLINICAL HISTORY:[facility] PLACEMENT COMPARISON:None. TECHNIQUES:X-ray of the chest, AP view. FINDINGS: Patient is rotated during exposure. Both lungs appear clear. Minimal blunting of right costophrenic angle is seen likely due to pleural effusion / thickening. Normal configuration of the mediastinum. The f[place] are normal in size and position. The cardiac size is normal. Degenerative changes seen in the visualized spine. Displaced fracture is seen in the left humeral head/neck with periosteal reaction with few adjacent bone fragment. IMPRESSION: 1. Minimal blunting of right costophrenic angle is seen likely due to pleural effusion / thickening. 2. Both lungs appear clear. 3. Displaced fracture is seen in the left humeral head/neck with periosteal reaction with few adjacent bone fragments - suggested Left shoulder xrays for further evaluation. Electronically Signed by: Hudson Gibson MD. (06/10/2023 11:13:16 [employer]PRES[employer])
--- NOTE | 2023-06-10 12:19 | PCM.NOTE ---
Date and Time: 06/10/23 1214 Subjective Assessment: No report of uncontrolled arm pain. The patient states that she is right hand dominant. No other new complaints. 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 as tested, normal mood/affect, nml cerebellar function Skin Exam: normal color Wound Assessment: Skin/Wound Assessment Wound/Incision Assessment Start: 06/08/23 02:01 Text: Status: Active Freq: Q12H Protocol: Document 06/10/23 03:00 LB (Rec: 06/10/23 04:00 LB [id number]) Wound/Incision Assessment Right Buttock Wound Assessment Admission Wound Type Pressure Ulcer Wound Stage Stage II Dressing Status Dry & Intact Drainage Amount None Drainage Odor None/Absent General Appearance Clean/Dry Length (cm) (cm) 1.2 Width (cm) (cm) 1 Depth (cm) (cm) 0.2 Wound Bed Greatest Portion Red (Granulation) Wound Bed Lesser Portion Red (Granulation) Surrounding Tissue [place] Topical Solution/Irrigant Saline Irrigant Comment 4 inch border foam Wound Photo Photo Taken Yes Date: 06/08/23 Time: 03:45 Distance from Wound: 12 inches Eye Exam: PERRL, EOMI, eyes nml inspection Ears, Nose, Throat Exam: normal ENT inspection Neck Exam: normal inspection, non-tender, supple, full range of motion Respiratory Exam: normal breath sounds, lungs clear Cardiovascular Exam: regular rate/rhythm Gastrointestinal/Abdomen Exam: soft, normal bowel sounds Extremity Exam: normal inspection, normal range of motion Back Exam: normal range of motion OBJECTIVE DATA Vital Signs: Vital Signs - 24 hr Temp Pulse Resp BP BP Pulse Ox 06/10/23 07:19 98 F 79 18 135/63 94 L 06/10/23 05:40 137/63 06/10/23 04:20 99.6 F 75 17 182/77 95 06/10/23 00:00 97.7 F 70 16 139/65 95 07/09/23 21:00 169/70 06/09/23 20:00 98.2 F 75 16 171/73 95 06/09/23 16:00 97.9 F 73 16 186/81 95 Pain Assessment - Last Documented Pain Intensity 1 Pain Scale Used 0-10 Pain Scale Intake and Output: Intake & Output 06/08/23 06/09/23 06/10/23 06/11/23 11:59 11:59 11:59 11:59 Intake Total 2735 3331 2937 Output Total 1000 2200 1750 Balance 1735 1131 1187 Weight 83.915 kg Lab Results: Lab Results-Last 24 Hours 06/09/23 06/09/23 06/10/23 Range/Units 16:16 21:05 07:01 WBC (4.0-10.5) x10^3/uL RBC (4.1-5.4) x10^6/uL Hgb (12.0-16.0) g/dL Hct (35-47) % MCV (78-100) fL MCH (26-32) pg MCHC (32-36) g/dL RDW (11.5-14.0) % Plt Count (150-450) x10^3/uL MPV (7.5-11.0) fL Gran % (36.0-66.0) % Immature Gran % (Auto) (0.00-0.4) % Nucleat RBC Rel Count (0.00-0.1) % Eos # (Auto) (0-0.5) x10^3/uL Immature Gran # (Auto) (0.00-0.03) x10^3u/L Absolute Lymphs (auto) (1.0-4.6) x10^3/uL Absolute Monos (auto) (0.0-1.3) x10^3/uL Absolute Nucleated RBC (0.00-0.01) x10^3u/L Lymphocytes % (24.0-44.0) % Monocytes % (0.0-12.0) % Eosinophils % (0.00-5.0) % Basophils % (0.0-0.4) % Absolute Granulocytes (1.4-6.9) x10^3/uL Basophils # (0-0.4) x10^3/uL POC Glucometer 144 H 205 H 95 (74 to 106) mg/dL 06/10/23 06/10/23 Range/Units 11:50 12:09 WBC 8.1 (4.0-10.5) x10^3/uL RBC 3.70 L (4.1-5.4) x10^6/uL Hgb 10.8 L (12.0-16.0) g/dL Hct 34.4 L (35-47) % MCV 93.0 (78-100) fL MCH 29.2 (26-32) pg MCHC 31.4 L (32-36) g/dL RDW 13.2 (11.5-14.0) % Plt Count 172 (150-450) x10^3/uL MPV 11.6 H (7.5-11.0) fL Gran % 71.0 H (36.0-66.0) % Immature Gran % (Auto) 0.7 H (0.00-0.4) % Nucleat RBC Rel Count 0.0 (0.00-0.1) % Eos # (Auto) 0.16 (0-0.5) x10^3/uL Immature Gran # (Auto) 0.06 H (0.00-0.03) x10^3u/L Absolute Lymphs (auto) 1.31 (1.0-4.6) x10^3/uL Absolute Monos (auto) 0.77 (0.0-1.3) x10^3/uL Absolute Nucleated RBC 0.00 (0.00-0.01) x10^3u/L Lymphocytes % 16.3 L (24.0-44.0) % Monocytes % 9.6 (0.0-12.0) % Eosinophils % 2.0 (0.00-5.0) % Basophils % 0.4 (0.0-0.4) % Absolute Granulocytes 5.72 (1.4-6.9) x10^3/uL Basophils # 0.03 (0-0.4) x10^3/uL POC Glucometer 162 H (74 to 106) mg/dL Radiology Exams: Radiology Procedures Category Date Time Status CHEST 1 VIEW (PORTABLE) Urgent Exams 06/10/23 10:59 Taken Multi-Disciplinary Progress Notes: Multi-Disciplinary Progress Notes 06/10/23 10:28 Case Management Note by Hannah Moncada PAPERWORK COMPLETE- NO LEVEL II REQUIRED, COPIES PLACED IN CHART Initialized on 06/10/23 10:28 - END OF NOTE Assessment/Plan (1) Left humeral fracture Current Visit: Yes Status: Acute Assessment & Plan: Appreciate assessment by Dr. Pérez (Ortho). Nonoperative intervention. Analge glenroy prn. Will need ortho follow up. Code(s): S42.302A - UNSP FRACTURE OF SHAFT OF HUMERUS, LEFT ARM, INIT (2) Acute on chronic renal failure Current Visit: Yes Status: Acute Assessment & Plan: Repeat BMP. IV fluids. Creatinine has improved. Code(s): N17.9 - ACUTE KIDNEY FAILURE, UNSPECIFIED; N18.9 - CHRONIC KIDNEY DISEASE, UNSPECIFIED (3) Multiple falls Current Visit: Yes Status: Acute Assessment & Plan: Due to debility, will need placement. CM aware. PT/OT. Code(s): R29.6 - REPEATED FALLS Telemedicine Encounter - Telemedicine Encounter Telemedicine Encounter: The entirety of this encounter was performed via Telemedicine"
[2023-06-10] MEDS: HUMALOG SQ PRN ×2 (12:32→21:48)
[2023-06-10] MEDS: Hydromorphone 1 mg/ml Injection IV PRN ×2 (16:30→21:41)
[2023-06-11] MEDS: NORCO 5/325 MG PO PRN ×3 (01:52→12:50)
[2023-06-11] MEDS: APRESOLINE 20 MG/ML INJ IV PRN (02:00)
[2023-06-11] MEDS: Sodium Chloride 0.9% 1000 ML 1,000 ML IV SCH (04:06)
[2023-06-11] MEDS: Hydromorphone 1 mg/ml Injection IV PRN ×2 (06:59→09:30)
[2023-06-11] MEDS: ECOTRIN 81 MG PO SCH (09:17)
[2023-06-11] MEDS ORDERED: ENOXAPARIN SODIUM SQ SCH (10:00)
--- NOTE | 2023-06-11 11:54 | PCM.DS ---
Discharge Summary Date of Admission: 06/07/23 18:27 Date of Discharge: 06/11/23 Admitting Physician: STEPHANIE COWAN MD Consults: Consults on Case 06/07/23 18:41 Consult Ortho ROUTINE Primary Care Provider: BOGDAN REBOLLEDO Allergies Allergies Sulfa (Sulfonamide Antibiotics) Allergy (Unknown, Verified 06/07/23 13:06) Hospital Summary - Hospital Course Hospital Course: Admitted with a left humerus fracture, FILEMON, and presumed UTI. Urine culture was negative so antibiotics were discontinued. Creatinine improved. Patient has been accepted to rehab. Will need to follow up with ortho for the humerus fracture, but per Bhargavi Casillas NP, the plan is for nonoperative management. - Vitals & Intake/Output Vital Signs: Vital Signs Temperature 98.0 F 06/11/23 07:13 Pulse Rate 80 06/11/23 07:13 Respiratory Rate 16 06/11/23 07:13 Blood Pressure 97/46 06/11/23 07:13 O2 Sat by Pulse Oximetry 92 L 06/11/23 07:13 Intake & Output: Intake & Output 06/08/23 06/09/23 06/10/23 06/11/23 11:59 11:59 11:59 11:59 Intake Total 2735 3331 2937 3288 Output Total 1000 2200 1750 3250 Balance 1735 1131 1187 38 Weight 83.915 kg - Lab Result Diagrams: 06/10/23 11:50 06/10/23 11:50 Lab Results-Last 24 Hrs: Lab Results-Last 24 Hours 06/10/23 06/10/23 06/10/23 Range/Units 11:50 11:50 12:09 WBC 8.1 (4.0-10.5) x10^3/uL RBC 3.70 L (4.1-5.4) x10^6/uL Hgb 10.8 L (12.0-16.0) g/dL Hct 34.4 L (35-47) % MCV 93.0 (78-100) fL MCH 29.2 (26-32) pg MCHC 31.4 L (32-36) g/dL RDW 13.2 (11.5-14.0) % Plt Count 172 (150-450) x10^3/uL MPV 11.6 H (7.5-11.0) fL Gran % 71.0 H (36.0-66.0) % Immature Gran % (Auto) 0.7 H (0.00-0.4) % Nucleat RBC Rel Count 0.0 (0.00-0.1) % Eos # (Auto) 0.16 (0-0.5) x10^3/uL Immature Gran # (Auto) 0.06 H (0.00-0.03) x10^3u/L Absolute Lymphs (auto) 1.31 (1.0-4.6) x10^3/uL Absolute Monos (auto) 0.77 (0.0-1.3) x10^3/uL Absolute Nucleated RBC 0.00 (0.00-0.01) x10^3u/L Lymphocytes % 16.3 L (24.0-44.0) % Monocytes % 9.6 (0.0-12.0) % Eosinophils % 2.0 (0.00-5.0) % Basophils % 0.4 (0.0-0.4) % Absolute Granulocytes 5.72 (1.4-6.9) x10^3/uL Basophils # 0.03 (0-0.4) x10^3/uL Sodium 137 (137-145) mmol/L Potassium 4.3 (3.5-5.1) mmol/L Chloride 108 H (98-107) mmol/L Carbon Dioxide 23 (22-30) mmol/L Anion Gap 10.6 (5-15) MEQ/L BUN 32 H (7-17) mg/dL Creatinine 1.07 H (0.52-1.04) mg/dL Estimated GFR 52.3 ML/MIN Glucose 163 H (74-106) mg/dL POC Glucometer 162 H (74 to 106) mg/dL Calcium 7.8 L (8.4-10.2) mg/dL Total Bilirubin 0.40 (0.2-1.3) mg/dL AST 24 (14-36) U/L ALT 26 (0-35) U/L Alkaline Phosphatase 86 (38-126) U/L Serum Total Protein 5.9 L (6.3-8.2) g/dL Albumin 2.8 L (3.5-5.0) g/dL 06/10/23 06/10/23 06/11/23 Range/Units 16:42 21:43 06:54 WBC (4.0-10.5) x10^3/uL RBC (4.1-5.4) x10^6/uL Hgb (12.0-16.0) g/dL Hct (35-47) % MCV (78-100) fL MCH (26-32) pg MCHC (32-36) g/dL RDW (11.5-14.0) % Plt Count (150-450) x10^3/uL MPV (7.5-11.0) fL Gran % (36.0-66.0) % Immature Gran % (Auto) (0.00-0.4) % Nucleat RBC Rel Count (0.00-0.1) % Eos # (Auto) (0-0.5) x10^3/uL Immature Gran # (Auto) (0.00-0.03) x10^3u/L Absolute Lymphs (auto) (1.0-4.6) x10^3/uL Absolute Monos (auto) (0.0-1.3) x10^3/uL Absolute Nucleated RBC (0.00-0.01) x10^3u/L Lymphocytes % (24.0-44.0) % Monocytes % (0.0-12.0) % Eosinophils % (0.00-5.0) % Basophils % (0.0-0.4) % Absolute Granulocytes (1.4-6.9) x10^3/uL Basophils # (0-0.4) x10^3/uL Sodium (137-145) mmol/L Potassium (3.5-5.1) mmol/L Chloride (98-107) mmol/L Carbon Dioxide (22-30) mmol/L Anion Gap (5-15) MEQ/L BUN (7-17) mg/dL Creatinine (0.52-1.04) mg/dL Estimated GFR ML/MIN Glucose (74-106) mg/dL POC Glucometer 122 H 249 H 96 (74 to 106) mg/dL Calcium (8.4-10.2) mg/dL Total Bilirubin (0.2-1.3) mg/dL AST (14-36) U/L ALT (0-35) U/L Alkaline Phosphatase (38-126) U/L Serum Total Protein (6.3-8.2) g/dL Albumin (3.5-5.0) g/dL 06/11/23 Range/Units 11:31 WBC (4.0-10.5) x10^3/uL RBC (4.1-5.4) x10^6/uL Hgb (12.0-16.0) g/dL Hct (35-47) % MCV (78-100) fL MCH (26-32) pg MCHC (32-36) g/dL RDW (11.5-14.0) % Plt Count (150-450) x10^3/uL MPV (7.5-11.0) fL Gran % (36.0-66.0) % Immature Gran % (Auto) (0.00-0.4) % Nucleat RBC Rel Count (0.00-0.1) % Eos # (Auto) (0-0.5) x10^3/uL Immature Gran # (Auto) (0.00-0.03) x10^3u/L Absolute Lymphs (auto) (1.0-4.6) x10^3/uL Absolute Monos (auto) (0.0-1.3) x10^3/uL Absolute Nucleated RBC (0.00-0.01) x10^3u/L Lymphocytes % (24.0-44.0) % Monocytes % (0.0-12.0) % Eosinophils % (0.00-5.0) % Basophils % (0.0-0.4) % Absolute Granulocytes (1.4-6.9) x10^3/uL Basophils # (0-0.4) x10^3/uL Sodium (137-145) mmol/L Potassium (3.5-5.1) mmol/L Chloride (98-107) mmol/L Carbon Dioxide (22-30) mmol/L Anion Gap (5-15) MEQ/L BUN (7-17) mg/dL Creatinine (0.52-1.04) mg/dL Estimated GFR ML/MIN Glucose (74-106) mg/dL POC Glucometer 154 H (74 to 106) mg/dL Calcium (8.4-10.2) mg/dL Total Bilirubin (0.2-1.3) mg/dL AST (14-36) U/L ALT (0-35) U/L Alkaline Phosphatase (38-126) U/L Serum Total Protein (6.3-8.2) g/dL Albumin (3.5-5.0) g/dL Micro Results-Entire Visit: Microbiology 06/07/23 15:35 Urine Culture - Final Urine, Void NO GROWTH Accuchecks Date 06/11/23 Date 06/10/23 Date 06/10/23 Time 07:13 Time 16:52 - Radiology Exams Ordered Rad Exams-Entire Visit: Radiology Procedures Category Date Time Status CHEST 1 VIEW (PORTABLE) Urgent Exams 06/10/23 10:59 Completed - Procedures and Test Procedures and Tests throughout Hospitalization: Therapy Orders & Screens 06/07/23 18:41 PT Eval & Treat (MD Order) ONCE Reason for Eval:: Strengthening, range of motion, transferring Diagnosis: Weakness, frequent falls 06/09/23 15:29 OT Eval and Treat (MD Order) ONCE Comment: Physician Instructions: Reason For Exam: Discharge Exam General Appearance: no apparent distress, alert Neurologic Exam: alert, oriented x 3, cooperative, 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 tested, normal mood/affect, nml cerebellar function Eye Exam: PERRL, EOMI, eyes nml inspection Ears, Nose, Throat Exam: normal ENT inspection Neck Exam: normal inspection, non-tender, supple, full range of motion Respiratory Exam: normal breath sounds, lungs clear Cardiovascular Exam: regular rate/rhythm, normal heart sounds Gastrointestinal/Abdomen Exam: soft Back Exam: normal range of motion Extremity Exam: normal inspection, normal range of motion Skin Exam: normal color Wound Assessment: Skin/Wound Assessment Wound/Incision Assessment Start: 06/08/23 02:01 Text: Status: Active Freq: Q12H Protocol: Document 06/11/23 10:06 REBEKAH (Rec: 06/11/23 10:09 REBEKAH [id number]) Wound/Incision Assessment Left Lower Medial Other Wound Assessment New Finding Wound Type Abrasion Wound Stage Stage I Drainage Amount None Drainage Odor None/Absent General Appearance Open to air,Unapproximated Length (cm) (cm) 2 Width (cm) (cm) 1 Wound Bed Greatest Portion Red (Granulation),Shiny Wound Bed Lesser Portion Red (Granulation),Shiny Surrounding Tissue [place] Topical Solution/Irrigant Medicated Ointment Wound Photo Photo Taken Yes Date: 06/11/23 Time: 09:30 Final Diagnosis/Problem List - Final Discharge Diagnosis/Problem (1) Left humeral fracture Current Visit: Yes Status: Acute Assessment & Plan: F/U with ortho. Nonoperative management. Sending Rx for fentanyl and prn norco for analgesia. Code(s): S42.302A - UNSP FRACTURE OF SHAFT OF HUMERUS, LEFT ARM, INIT (2) Acute on chronic renal failure Current Visit: Yes Status: Acute Assessment & Plan: Improved. Encourage oral fluid intake. Will have Pop discontinued with voiding trial prior to discharge. Code(s): N17.9 - ACUTE KIDNEY FAILURE, UNSPECIFIED; N18.9 - CHRONIC KIDNEY DISEASE, UNSPECIFIED (3) Multiple falls Current Visit: Yes Status: Acute Assessment & Plan: Rehab placement secured. Code(s): R29.6 - REPEATED FALLS Telemedicine Encounter - Telemedicine Encounter Telemedicine Encounter: The entirety of this encounter was performed via Telemedicine" - Discharge Disposition: DC TO OTHER HOSP Condition: Fair Prescriptions: New Fentanyl 25Mcg Patch [Duragesic 25MCG Patch] 25 mcg TOP Q3D #10 MDD 25 mcg Hydrocodone/Acetaminophen [Hydrocodone-Acetamin 5-325 mg] 1 tab PO Q4HPRN PRN #30 tablet MDD 6 PRN Reason: Pain Continue Simvastatin 20Mg [Zocor 20Mg] 20 mg PO DAILY Amlodipine Besylate 5 mg [Norvasc 5 mg] 5 mg PO DAILY lisinopriL [Zestril] 30 mg PO DAILY Glipizide 10 mg [Glucotrol 10 MG] 10 mg PO DAILY Aspirin EC 81 mg [Ecotrin 81 mg] 81 mg PO DAILY Additional Instructions: CUSTODIAL ORDERS: ADMIT TO [facility]ALTH[facility] DIET PT/OT EVAL AND TREAT LEAVE IMMOBILIZER IN PLACE- [facility] SHOULD BE DELIVERING PATIENT A NEW ONE, WAS FITTED 06/10/23 Zachary CASILLAS WILL SEE PATIENT AT FACILITY SEE ATTACHED MED LIST Follow up with: BOGDAN REBOLLEDO [Primary Care Provider] - PRECIOUS DANIEL Jr., MD [NON-STAFF PHY W/O PRIVILEGES] -
[2023-06-11 12:10] VITALS: BP 163/78; PULSE 87; O2SAT 96
[2023-06-11] MEDS ORDERED: Duragesic 25MCG Patch TD SCH (12:30)
== END 2023-06-11 12:56 | DRG 563 ==
LOC: ED 12:54 → MED SURG 18:27
PROVIDERS: ADMIT Internal Medicine; ATTEND Internal Medicine
DX: S42.302A Unspecified fracture of shaft of humerus, left arm, initial encounter for closed fracture (principal); N17.9 Acute kidney failure, unspecified; E87.20 Acidosis, unspecified; E11.22 Type 2 diabetes mellitus with diabetic chronic kidney disease; I12.9 Hypertensive chronic kidney disease with stage 1 through stage 4 chronic kidney disease, or unspecified chronic kidney disease; N18.9 Chronic kidney disease, unspecified; W19.XXXA Unspecified fall, initial encounter; R29.6 Repeated falls; D72.829 Elevated white blood cell count, unspecified; R60.0 Localized edema; S40.022A Contusion of left upper arm, initial encounter; L89.312 Pressure ulcer of right buttock, stage 2; R53.1 Weakness; E86.0 Dehydration; E78.5 Hyperlipidemia, unspecified; Z79.899 Other long term (current) drug therapy; Z20.828 Contact with and (suspected) exposure to other viral communicable diseases; Z86.73 Personal history of transient ischemic attack (TIA), and cerebral infarction without residual deficits
CPT/HCPCS: 36000; 36415; 51702; 70450; 71045; 72125; 72131; 73000; 73030; 73060; 73502; 80048; 80053; 81001; 82040; 82805; 82947; 83036; 83605; 83735; 83880; 84100; 84484; 85025; 85610; 87086; 93005; 93041; 93971; 94760; 96365; 96374; 96375; 97161; 97165; 99231; 99285; Q3014; J0360; J0696; J1170; J1650; J1817; J2270; J2405; A9270-GY

== ENCOUNTER 2024-09-20 08:39 | Emergency (ER) | payer MEDICARE, OTHER ==
[2024-09-20 08:48] VITALS: TEMP 96.4
--- NOTE | 2024-09-20 09:02 | ERPHSYRPT ---
- History of Present Illness Time Seen by Provider: 09/20/24 08:50 Historian: patient, EMS Exam Limitations: no limitations Patient Subjective Stated Complaint: PT states "I vomited this morning and it was bright red blood with clots out my nose." Triage Nursing Assessment: PT presented alert and oriented X 3, skin wpd. Pt able to speak in clear full sentences. PT resting comfortably on the bed. PT in no apprent respiratory distress. Physician History: 83yo f presents via EMS following an episode of blood tinged emesis at the longterm this AM. Pt reports she had a few bites of eggs and toast, states her throat felt dry and irritated, then she had a small volume episode of blood tinged emesis. Pt reports she had some coffee to drink following this episode, has tolerated that well. Pt reports she has not been nauseous, does not have any abdominal pain at this time. Pt Timing/Duration: today, sudden Activities at Onset: other (eating) Pain Radiation: no radiation Severity of Pain-Max: none Severity of Pain-Current: none Associated Symptoms: vomiting, No chest pain, No diaphoresis, No diarrhea, No fever/chills, No loss of appetite, No nausea, No shortness of breath Allergies/Adverse Reactions: Sulfa (Sulfonamide Antibiotics) Allergy (Unknown, Verified 06/07/23 13:06) Home Medications: Amlodipine Besylate 5 mg [Norvasc 5 mg] 5 mg PO DAILY 06/07/23 [History] Aspirin EC 81 mg [Ecotrin 81 mg] 81 mg PO DAILY 06/07/23 [History] Glipizide 10 mg [Glucotrol 10 MG] 10 mg PO DAILY 06/07/23 [History] Simvastatin 20Mg [Zocor 20Mg] 20 mg PO DAILY 06/07/23 [History] lisinopriL [Zestril] 30 mg PO DAILY 06/07/23 [History] Dapagliflozin Propanediol [Farxiga] 5 mg PO DAILY 09/20/24 [History] Hx Tetanus, Diphtheria Vaccination/Date Given: No Hx Influenza Vaccination/Date Given: Yes Hx Pneumococcal Vaccination/Date Given: No Immunizations Up to Date: No Travel Risk - International Travel Have you traveled outside of the country in past 3 weeks: No - Emerging Infectious Disease Are you exhibiting symptoms associated with any current EIDs: No - Review of Systems Constitutional: No Symptoms Respiratory: No Symptoms Cardiac: No Symptoms Abdominal/Gastrointestinal: Vomiting, Constipation, No Abdominal Pain, No Nausea, No Diarrhea Genitourinary Symptoms: No Symptoms - Past Medical History Pertinent Past Medical History: Yes Neurological History: Stroke ENT History: Cataracts Cardiac History: Arrhythmia, High Cholesterol, Hypertension Respiratory History: No Pertinent History Endocrine Medical History: Diabetes Type I Musculoskeletal History: Fractures GI Medical History: GERD History: No Pertinent History Psycho-Social History: No Pertinent History Female Reproductive Disorders: No Pertinent History - Past Surgical History Past Surgical History: Yes Neuro Surgical History: No Pertinent History Cardiac: No Pertinent History Respiratory: No Pertinent History Gastrointestinal: Cholecystectomy Genitourinary: No Pertinent History Musculoskeletal: No Pertinent History Female Surgical History: No Pertinent History - Social History Smoking Status: Never smoker Exposure to second hand smoke: No Drug Use: none Patient Lives Alone: Yes - Social Determinants of Health Will the patient participate in the screening: Declined to provide - Nursing Vital Signs Nursing Vital Signs: Initial Vital Signs Temperature 96.4 F 09/20/24 08:41 Pulse Rate 109 H 09/20/24 08:41 Respiratory Rate 18 09/20/24 08:41 Blood Pressure 167/59 09/20/24 08:41 O2 Sat by Pulse Oximetry 98 09/20/24 08:41 Pain Scale Pain Intensity 0 - Physical Exam General Appearance: no apparent distress, alert Respiratory Exam: normal breath sounds, lungs clear, airway intact, No chest tenderness, No respiratory distress Cardiovascular Exam: regular rate/rhythm, normal heart sounds, No edema Gastrointestinal/Abdomen Exam: soft, normal bowel sounds, No tenderness, No distention, No guarding SpO2 Interpretation: normal SpO2: 98 O2 Delivery: Room Air - Course EKG Interpreted by Me: RATE (72), Sinus Rhythm, Other (qtcb 446, not suggestive of acute ischemia) Ordered Tests: Active Orders 24 hr Category Date Time Status EKG-ER Only STAT Care 09/20/24 08:57 Active ABDOMEN AND PELVIS W CONTRAST [CT] Stat Exams 09/20/24 08:51 Completed CBC W DIFF Stat Lab 09/20/24 09:20 Completed CMP Stat Lab 09/20/24 09:06 Completed CULTURE,URINE Stat Lab 09/20/24 09:06 Received LIPASE Stat Lab 09/20/24 09:06 Completed UA W/RFX UR CULTURE Stat Lab 09/20/24 09:06 Completed Lab/Rad Data: Laboratory Result Diagrams 09/20/24 09:20 09/20/24 09:06 Laboratory Results 09/20/24 09/20/24 09/20/24 Range/Units 09:20 09:06 09:06 WBC 6.9 (3.98-10.04) x10^3/uL RBC 5.15 (3.93-5.22) x10^6/uL Hgb 15.0 (11.2-15.7) g/dL Hct 46.4 H (34.1-44.9) % MCV 90.1 (79.4-94.8) fL MCH 29.1 (25.6-32.2) pg MCHC 32.3 (32.2-35.5) g/dL RDW 13.4 (11.7-14.4) % Plt Count 195 (182-369) x10^3/uL MPV 11.3 (9.4-12.3) fL Gran % 69.0 (34.0-71.1) % Immature Gran % (Auto) 0.4 (0.001-0.429) % Nucleat RBC Rel Count 0.0 (0.00-0.2) % Eos # (Auto) 0.13 (0.04-0.36) x10^3/uL Immature Gran # (Auto) 0.03 (0.001-0.031) x10^3u/L Absolute Lymphs (auto) 1.46 (1.18-3.74) x10^3/uL Absolute Monos (auto) 0.48 (0.24-0.86) x10^3/uL Absolute Nucleated RBC 0.00 (0.00-0.012) x10^3u/L Lymphocytes % 21.1 (19.3-51.7) % Monocytes % 6.9 (4.7-12.5) % Eosinophils % 1.9 (0.7-5.8) % Basophils % 0.7 (0.1-1.2) % Absolute Granulocytes 4.77 (1.56-6.13) x10^3/uL Basophils # 0.05 (0.01-0.08) x10^3/uL Sodium 137 (135-145) mmol/L Potassium 4.7 (3.5-5.1) mmol/L Chloride 103 (98-107) mmol/L Carbon Dioxide 23 (22-30) mmol/L Anion Gap 16.0 H (5-15) MEQ/L BUN 31 H (7-17) mg/dL Creatinine 0.96 (0.52-1.04) mg/dL Estimated GFR 59.1 ML/MIN Glucose 223 H (74-106) mg/dL Calcium 9.4 (8.4-10.2) mg/dL Total Bilirubin 0.60 (0.2-1.3) mg/dL AST 31 (14-36) U/L ALT 35 (0-35) U/L Alkaline Phosphatase 102 (38-126) U/L Serum Total Protein 7.4 (6.3-8.2) g/dL Albumin 4.1 (3.5-5.0) g/dL Lipase 137 (23-300) U/L Urine Color Yellow (Yellow) Urine Appearance Clear (Clear) Urine pH 5.5 (4.6-8.0) Ur Specific Gay 1.020 (1.005-1.030) Urine Protein Negative (Negative) Urine Glucose (UA) >=1000 A (Negative) mg/dL Urine Ketones Negative (Negative) Urine Blood Negative (Negative) Urine Nitrite Positive A (Negative) Urine Bilirubin Negative (Negative) Urine Urobilinogen 0.2 (0.2) mg/dL Ur Leukocyte Esterase Negative (Negative) U Hyaline Cast (Auto) NONE SEEN (0-2) /LPF Urine Microscopic RBC 0-2 (0-5) /HPF Urine Microscopic WBC 6-10 A (0-5) /HPF Ur Epithelial Cells Rare (None Seen) /HPF Urine Bacteria Many A (None Seen) /HPF Urine Culture Reflexed YES (NO) - Progress Progress: improved Progress Note: 09/20/24 11:29 urine obtained via bedpan, not clean catch or cath, I have low suspicion of UTI based on clinical signs and other lab w/u 09/20/24 11:56 pt did not have any episodes of emesis while in ED, denies any nausea or abdominal discomfort, is requesting food lab w/u not suggestive of acute pathology, CT w/ contrast abd/pel showed no acute pathology, some chronic findings of colonic diverticuli, umbilical hernia, uterine fibroid - recommends US of fibroid for further eval - I discussed all CT findings w/ patient plan for dc home back to SNF 09/20/24 11:59 small volume blood tinged emesis likely 2/2 irritation of esophagus while pt was eating breakfast Counseled pt/family regarding: lab results, diagnosis, need for follow-up, rad results Medical Desision Making - Diagnostic Testing Diagnostic test were ordered, analyzed, and reviewed by me: Yes Radiological Interpretation: Reviewed by me, Teleradiologist Report - Risk of complications Minimal Risk: Minimal risk of morbidity - Departure Departure Disposition: Home Clinical Impression: Vomiting Qualifiers: Vomiting type: hematemesis Nausea presence: without nausea Qualified Code(s): K92.0 - Hematemesis Condition: Stable Critical Care Time: No Referrals: GALILE[facility] [Primary Care Provider] - Follow up/PCP as directed Additional Instructions: recommend oral hydration w/ clear liquids/electrolyte containing fluids avoid dry/abrasive foods that may irritate the esophagus recommend daily OTC antacid like famotidine return to ED if: have any further episodes of bloody vomiting or stools, develop confusion, develop light headedness, develop significant abdominal pain
[2024-09-20 09:28] LABS: Absolute Neutrophil Ct (ANC) 4.77 x10^3/uL (1.56-6.13); BASOPHIL % 0.7 % (0.1-1.2); Basophil (Absolute #) 0.05 x10^3/uL (0.01-0.08); Eosinophil % 1.9 % (0.7-5.8); Eosinophil (Absolute #) 0.13 x10^3/uL (0.04-0.36); Hematocrit 46.4 % (34.1-44.9); IMMATURE GRAN # 0.03 x10^3u/L (0.001-0.031); IMMATURE GRAN % 0.4 % (0.001-0.429); Lymphocyte (Absolute #) 1.46 x10^3/uL (1.18-3.74); Lymphocytes % 21.1 % (19.3-51.7); Mean Cell Volume 90.1 fL (79.4-94.8); Mean Corpuscular Hemoglobin 29.1 pg (25.6-32.2); Mean Corpuscular Hgb Concent. 32.3 g/dL (32.2-35.5); Mean Platelet Volume 11.3 fL (9.4-12.3); Monocyte (Absolute #) 0.48 x10^3/uL (0.24-0.86); Monocytes % 6.9 % (4.7-12.5); Platelet Count 195 x10^3/uL (182-369); Red Blood Count 5.15 x10^6/uL (3.93-5.22); Red Cell Distribution Width 13.4 % (11.7-14.4); White Blood Count 6.9 x10^3/uL (3.98-10.04)
[2024-09-20 09:36] LABS: Appearance Clear (Clear); Bilirubin Negative (Negative); Blood Negative (Negative); Glucose, Urine >=1000 mg/dL (Negative); Ketones Negative (Negative); Leukocyte Esterase Negative (Negative); Nitrite Positive (Negative); Ph 5.5 (4.6-8.0); Protein,Urine Dip Negative (Negative); Urobilinogen 0.2 mg/dL (0.2)
[2024-09-20 09:37] LABS: Bacteria Many /HPF (None Seen); Epithelial Cells Rare /HPF (None Seen); Hyaline Casts NONE SEEN /LPF (0-2); RBC 0-2 /HPF (0-5)
[2024-09-20 09:44] LABS: ALBUMIN 4.1 g/dL (3.5-5.0); BILIRUBIN,TOTAL 0.6 mg/dL (0.2-1.3); Calcium 9.4 mg/dL (8.4-10.2); Creatinine 1 0.96 mg/dL (0.52-1.04); EST GLOMERULAR FILTRATION RATE 59.1 ML/MIN; Potassium 4.7 mmol/L (3.5-5.1); Total Protein 7.4 g/dL (6.3-8.2)
[2024-09-20 11:17] VITALS: RESP 16
[2024-09-20 11:30] VITALS: O2SAT 98
--- NOTE | 2024-09-20 11:40 | XRAY ---
CLINICAL HISTORY: epigastric pain, hematemesis COMPARISON: No prior studies available for comparison. TECHNIQUE: CT of the abdomen and pelvis was performed with 80cc Isovue 370 contrast, with the following protocol: axial images with, and reconstructed coronal and sagittal images. One of the following dose reduction techniques was utilized for this exam: Automated exposure control, adjustment of the mA and/or kV according to patient size, and use of iterative reconstruction. FINDINGS: Abdomen: Liver: Mildly enlarged in size, shape, and density. No focal lesions, cysts, or masses were identified. Hepatic vasculature and biliary ducts are unremarkable. Cholecystectomy. Pancreas: Pancreatic head, body, and tail are visualized and appear normal in size and density. No pancreatic masses or calcifications were noted. The pancreatic duct is not dilated. Spleen: Normal in size, shape, and density. No splenic lesions or masses were identified. Kidneys and Adrenal Glands: Both kidneys are normal in size, shape, and position. Cortical thickness is within normal limits. No renal calculi or hydronephrosis. Adrenal glands are unremarkable with no evidence of masses or hyperplasia. Pelvis: Urinary Bladder: Normal in contour and wall thickness. No intraluminal lesions identified. Uterus ; A Well defined area of increased density noted in the right aspect of the pelvis and inseparable from the uterus most likely calcified fibroid . The uterus appears loculated with defined area of heterogeneous density measuring about 5 x6 cm likely represent fibroid. Vagina: Normal in contour and wall thickness. Cervix: No evidence of mass or abnormal thickening. Peritoneal and Retroperitoneal Structures: No free fluid or abnormal fluid collections were identified within the abdomen or pelvis. No lymphadenopathy was noted. Bowel: Multiple small colonic diverticula were noted in the sigmoid region with no evidence of complication. Appendix is separately visualized and appears unremarkable Bones and Soft Tissues: An umbilical hernia is noted and contains fat. 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 L4 anterolisthesis with LT pars defect. IMPRESSION: 1. No evidence of acute intra-abdominal pathology. 2. Non-complicated umbilical hernia. 3. A Well-defined area of increased density was noted in the right aspect of the pelvis and inseparable from the uterus most likely calcified fibroid. The uterus appears loculated with a defined area of heterogeneous density likely representing fibroid. Ultrasound/MRI pelvis is advised. 4. Non-complicated colonic diverticula. 5. 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 6. L4 anterolisthesis with left sided pars defect. Clinical correlation is recommended for further evaluation. Electronically Signed by: Hudson Gibson MD. (09/20/2024 11:36:59 EDT)
[2024-09-20 12:15] VITALS: BP 145/81; PULSE 71
== END 2024-09-20 12:58 | disposition home or self-care (01) ==
LOC: ED 08:39
DX: K92.0 Hematemesis (principal); E78.5 Hyperlipidemia, unspecified; I10 Essential (primary) hypertension; E10.9 Type 1 diabetes mellitus without complications; Z79.84 Long term (current) use of oral hypoglycemic drugs; Z79.899 Other long term (current) drug therapy
CPT/HCPCS: 36000; 36415; 74177; 80053; 81001; 83690; 85025; 87077; 87086; 87186; 93005; 99284